=== PATIENT | male | born 1965 | race Caucasian/White ===

== ENCOUNTER 2019-07-09 05:40 | Emergency (ER) | payer MEDICAID ==
[~2019-07-09] VITALS: Ht 188 cm; Wt 90.7 kg
[2019-07-09 05:51] VITALS: BP_SYST 146
[2019-07-09] MEDS ORDERED: DIPH-TET-PERTUS Vaccine 0.5 ML VIAL (ADACEL) I.M. ONE (06:15)
[2019-07-09] MEDS ORDERED: fentaNYL CITRATE/PF 100 MCG/2 ML AMP IM ONE (07:15)
[2019-07-09] MEDS ORDERED: fentaNYL CITRATE/PF 100 MCG/2 ML AMP IVP ONE (07:45)
[2019-07-09 08:54] VITALS: BP_SYST 128
== END 2019-07-09 08:54 | disposition home or self-care (01) ==
LOC: SED 05:40
DX: S61.411A Laceration without foreign body of right hand, initial encounter (principal); W25.XXXA Contact with sharp glass, initial encounter; Y93.89 Activity, other specified; Y92.89 Other specified places as the place of occurrence of the external cause; Y99.8 Other external cause status
CPT/HCPCS: 73130; 96374; 99285; J3010